=== PATIENT | female | born 1950 | race Hispanic/Latino ===

== ENCOUNTER → 2021-10-03 | Outpatient (CLI) | payer MEDICARE | LOC: RAD 11:03 | PROVIDERS: ATTEND Family Medicine | DX: M54.50 Low back pain, unspecified (principal) | CPT/HCPCS: 72110 ==

== ENCOUNTER → 2021-10-07 | Outpatient (CLI) | payer MEDICARE | LOC: CARD 10:24 | PROVIDERS: ATTEND Family Medicine | DX: M85.88 Other specified disorders of bone density and structure, other site (principal); N95.9 Unspecified menopausal and perimenopausal disorder | CPT/HCPCS: 77080; 93925 ==

== ENCOUNTER → 2022-01-02 | Outpatient (CLI) | payer MEDICARE | LOC: DX 08:31 | PROVIDERS: ATTEND Family Medicine | DX: R13.10 Dysphagia, unspecified (principal); K21.9 Gastro-esophageal reflux disease without esophagitis; K44.9 Diaphragmatic hernia without obstruction or gangrene; Z20.822 Contact with and (suspected) exposure to COVID-19 | CPT/HCPCS: 74246; U0002 ==